=== PATIENT | female | born 1985 | race Caucasian/White ===

== ENCOUNTER 2016-06-11 12:19 | Emergency (ER) | payer OTHER ==
[~2016-06-11] VITALS: Ht 165.1 cm; Wt 78.0 kg
[2016-06-11] MEDS ORDERED: IBUPROFEN 600 MG TABLET PO ONE (14:00)
[2016-06-11 15:20] VITALS: BP 122/68
== END 2016-06-11 15:21 | disposition home or self-care (01) ==
LOC: EMS 12:23
DX: S63.501A Unspecified sprain of right wrist, initial encounter (principal); X58.XXXA Exposure to other specified factors, initial encounter; Y93.89 Activity, other specified; Y92.89 Other specified places as the place of occurrence of the external cause; Y99.8 Other external cause status
CPT/HCPCS: 99284

== ENCOUNTER 2018-11-19 17:25 | Emergency (ER) | payer OTHER ==
[~2018-11-19] VITALS: Ht 162.6 cm; Wt 72.0 kg
[2018-11-19 21:00] VITALS: BP 116/80
== END 2018-11-19 21:07 | disposition home or self-care (01) ==
LOC: EMS 17:26
DX: J40 Bronchitis, not specified as acute or chronic (principal); M79.10 Myalgia, unspecified site